=== PATIENT | male | born 1990 | race Caucasian/White ===

== ENCOUNTER → 2019-01-29 17:20 | Outpatient (CLI) | payer OTHER, SELFPAY ==
[2019-01-29 18:24] LABS: Basophils % 0.3 % (0.1-2.0); Eosinophils # 0.1 K/mm3 (0.0-0.4); Eosinophils % 1.5 % (0.1-12.0); Hematocrit 42.8 % (42.0-52.0); Hemoglobin 14.3 g/dL (14.1-18.0); Lymphocytes # 2.5 K/mm3 (0.7-4.5); Lymphocytes % 25.5 % (10-50); Mean Corpuscular HGB Conc 33.5 g/dL (31.8-35.4); Mean Corpuscular Volume 89.5 fl (80-94); Mean Platelet Volume 7.5 fl (7.4-10.4); Monocytes # 0.6 K/mm3 (0.1-1.0); Monocytes % 6.5 % (1.7-9.3); Neutrophils # 6.3 K/mm3 (1.8-7.8); Neutrophils % 66.2 % (37.0-80.0); Platelet Count 305 K/mm3 (142-424); Red Blood Count 4.78 M/mm3 (4.60-6.20); Red Cell Distribution Width 13.5 % (11.5-17.5); White Blood Count 9.6 K/mm3 (4.8-10.8)
[2019-01-29 18:53] LABS: Alanine Aminotransferase 156 U/L (12-78); Albumin Level 3.9 gm/dL (3.4-5.0); Albumin/Globulin Ratio 1.1 (1.1-1.8); Alkaline Phosphatase 97 U/L (46-116); Anion Gap 14.9 mEq/L (5-15); Aspartate Amino Transferase 50 U/L (15-37); Bilirubin,Total 0.3 mg/dL (0.2-1.0); Blood Urea Nitrogen 13 mg/dL (7-18); Calcium 9.2 mg/dL (8.5-10.1); Carbon Dioxide 26 mmol/L (21.0-32.0); Chloride 104 mmol/L (98-107); Chol/HDL Ratio 7.3 (1-3.5); Cholesterol 205 mg/dL (140-200); Estimated Glomerular Filt Rate 90 ml/min (>60); GFR (African American) 109 ML/MIN (>60); Globulin 3.7 gm/dl (1.3-3.2); Glucose 100 mg/dL (74-106); HDL Cholesterol 28 mg/dL (27-67); LDL Cholesterol 141 mg/dL (0-130); Potassium 3.9 mmoL/L (3.5-5.1); Sodium 141 mmol/L (136-145); T4 (Thyroxine) 7.6 ug/dl (4.7-13.3); Thyroid Stimulating Hormone 3.08 uIU/ml (0.358-3.740); Total Protein,Serum 7.6 gm/dL (6.4-8.2); Triglycerides 182 mg/dL (30-200); VLDL Cholesterol 36 mg/dL (0-40)
== END ==
PROVIDERS: Visit Provider Nurse Practitioner Family
DX: E03.9 Hypothyroidism, unspecified (principal); I10 Essential (primary) hypertension; E55.9 Vitamin D deficiency, unspecified
CPT/HCPCS: 80053; 80061; 82652; 84436; 84443; 85025

== ENCOUNTER 2020-01-11 14:29 | Emergency (ER) | payer OTHER, SELFPAY ==
[2020-01-11 14:36] VITALS: BP 100/63; PULSE 95; RESP 16; O2SAT 98; BMI 34.8
[2020-01-11 14:43] VITALS: BP 100/63; PULSE 95; RESP 16; TEMP 36.7; O2SAT 98; BMI 37.8
--- NOTE | 2020-01-11 14:44 | XR_ITS ---
PROCEDURE: XR ELBOW RT MIN 3V CLINICAL INDICATION: Right elbow pain. No known injury. COMPARISON: No exams were available for comparison FINDINGS: No fracture or dislocation. No lytic or blastic change. There is normal mineralization. The joint spaces are well-preserved. No significant degenerative/arthritic changes. Small subchondral subtle chronic nonspecific lytic changes are seen in the capitellum. Likely a bone island is present in the radial head. Other findings:Anterior and posterior fat pads of the elbow are nondisplaced. IMPRESSION: 1. No acute findings. 2. Small nonspecific chronic appearing minimally lytic changes are seen in the capitellum. Dictated by: Kareem James 01/11/2020 15:12 Electronically signed by Kareem James in [place] 01/11/2020 15:12
--- NOTE | 2020-01-11 14:55 | HMH.EDUTC ---
[facility] [place] Dis[place] Clinical Impression: Lateral epicondylitis (tennis elbow) Qualifiers: Laterality: right Qualified Code(s): M77.11 - Lateral epicondylitis, right elbow Disposition: Home, Self-Care Condition on Discharge: Good Additional Instructions: ice 20 mins remove may repeat every hour for comfort steroids as directed motrin as needed for pain and inflammation if symptoms worsen or no improvement return or be seen in ed Prescriptions: predniSONE [Prednisone 20mg Tab] 20 mg PO BID #10 tab Prescription Printed Referrals: Nikhil Genao MD [Primary Care Provider] - Azucena Lopez MD [Physician] - Time of Disposition: 15:07 Medical Decision Making - Eric Inquiry Pt receiving controlled substance: No Vital Signs: 01/11/20 14:36 01/11/20 14:43 Temperature 98.1 F Temperature Source Oral Pulse Rate [Left Radial] 95 H 95 H Respiratory Rate 16 16 Blood Pressure [Right Arm] 100/63 L 100/63 L Blood Pressure Mean [Right Arm] 75 75 Blood Pressure Source [Right Arm] Automatic Cuff Blood Pressure Position [Right Arm] Sitting Sitting 02 Sat by Pulse Oximetry 98 98 Oxygen Delivery Method Room Air Room Air Orders (Tests/Meds): ORDERS Category Date Time Status Elbow XR right minimum 3 views [XR elbow RT min 3V] Exams 01/11/20 14:44 Taken Stat [facility] [place] HPI - General Chief complaint: Extremity Injury, Upper Stated complaint: right arm pain Time Seen by Provider: 01/11/20 14:56 Mode of Arrival: Ambulatory Source of Information: Patient Description of Symptoms (Recalled from Triage Doc. by RN): to ed per pvt car with c/o rt elbow pain x several days. +swelling pain with movement. pt denies any injury HEENT Symptoms (Recalled from RN notes): No Resp Symptoms (Recalled from RN notes): No Skin Symptoms (Recalled from RN notes): No MS Symptoms (Recalled from RN notes): Yes Functional Status (Recalled from RN notes): none - History of Present Illness Provider Complaint: 29 yr old male presents rt elbow pain. pt states no injury. Pt states he was working friday and swinging a hammer and noticed his elbow was pain. Pt states today he woke up and was unable to bend his arm. - Related Data Previous Rx's Medication Instructions Recorded predniSONE [Prednisone 20mg 20 mg PO BID #10 tab 07/28/20 Tab] Allergies Allergy/AdvReac Type Severity Reaction Status Date / Time penicillin G [PENICILLIN G] Allergy Mild Verified 01/11/20 14:39 - Worker's Comp Is this a Worker's Comp case?: No [facility] History - Hepatitis A Screen Drug use history?: No High risk sexual behaviors?: No History of sexually transmitted infection?: No Currently employed?: No Childcare worker?: No Do you have indoor plumbing?: Yes Do you have electricity?: Yes Attestation statement:: This patient has been screened for Hepatitis A risk factors. I have reviewed the patient's past medical history: Yes Medical History: Reports:: Hypertension Denies:: Cancer, Diabetes Mellitus Type 1, Diabetes Mellitus Type 2, Internal Pacemaker, MRSA Other Medical History: Reports: Hypothyroidism Other Surgeries: Yes: Hernia Repair. No: Pacemaker Amputation: No Fractures: No - Social History Smoking Status: Current every day smoker Tobacco Type: smokeless tobacco # Packs/Day (cigarettes): 1 Alcohol Intake: never Alcohol Intake Frequency:: holidays/special occasions only Occupational Status: employed Housing: house Household Members: family Family Hx:: Non-contributory ROS Obtained: Yes Systems reviewed as appropriate & no additional complaints - Constitutional Constitutional: Reports system reviewed and no additional complaints, except as docu, Denies chills, Denies fever(s) - Eyes Eyes: Reports system reviewed and no additional complaints, except as docu, Denies loss of vision - ENT Ears, Nose, Mouth, and Throat: Reports system reviewed and no additional complaints, except as docu, Denies sore throat - C
[2020-01-11 15:30] VITALS: BP 100/63; PULSE 95; RESP 16; TEMP 36.7
== END 2020-01-11 15:30 | disposition home or self-care (01) ==
LOC: ER 14:38 → UTC 14:38
PROVIDERS: Emergency Provider Emergency Medicine; PCP Emergency Medicine
DX: M77.11 Lateral epicondylitis, right elbow (principal); I10 Essential (primary) hypertension; Z88.0 Allergy status to penicillin
CPT/HCPCS: 73080; 99201

== ENCOUNTER 2020-08-10 17:24 | Emergency (ER) | payer OTHER, SELFPAY ==
[2020-08-10 17:40] VITALS: BP 145/91; PULSE 84; RESP 17; TEMP 36.6; O2SAT 98; BMI 33.5
--- NOTE | 2020-08-10 17:55 | HMH.EDUTC ---
[facility] [place] Impression: Cough, Encounter for laboratory testing for COVID-19 virus Disposition: Home, Self-Care Condition on Discharge: Good Instructions: Cough, DI for COVID-19 (Suspected or Confirmed ), Coronavirus Disease 2019, Preventing the Spread of Coronavirus Discharge Instructions Additional Instructions: *Monitor Temp, Over the counter Motrin or Tylenol as directed/as needed Tylenol every 4 hours and Motrin every 6 hours (as long as your family doctor has told you that you can take it) for fever or pain. and straight to ER if unable to lower temp less than 101.0 after medication given *Warm fluids like tea with honey may help to soothe the throat *Sleep elevated *Humidifier/Vaporizer Bromfed may cause drowsiness. Know how it effects you (your child) before driving, caring for small child, or sending your child to school. Not other antihistamines/allergy medications while taking bromfed Follow up IMMEDIATELY for new or worsening symptoms or no Noticeable improvement over the next 48-72 hours. 911 for difficulty breathing or swallowing You were tested for today for COVID19 your test result should be back in the next 24-48 hours, you may call to the [facility] to see if your test results are back in the next 48 hours [phone] [facility] hours are 9am-9pm You was given a handout with instructions for Self Quarantine and Self isolation for while you wait on test results and what to do if they are positive If you are positive the Health Dept will be contacting you also Prescriptions: Brompheniramine/Pseudoephed/Dm [Bromfed Dm Cough Syrup] 5 - 10 ml PO Q46H PRN #200 ml PRN Reason: Cough [facility]: [facility] Referrals: Nikhil Genao MD [Primary Care Provider] - As needed Forms: Work/School Release Time of Disposition: 18:00 Medical Decision Making - Eric Inquiry Pt receiving controlled substance: No Eric was queried for this patient: No Vital Signs: 08/10/20 17:40 Temperature 97.8 F Temperature Source Oral Pulse Rate [Right Brachial] 84 Respiratory Rate 17 Blood Pressure [Right Arm] 145/91 H Blood Pressure Mean [Right Arm] 109 Blood Pressure Source [Right Arm] Automatic Cuff Blood Pressure Position [Right Arm] Sitting 02 Sat by Pulse Oximetry 98 Oxygen Delivery Method Room Air Orders (Tests/Meds): ORDERS Category Date Time Status Covid-19 Nasal PCR ([facility]) Routine Lab 08/10/20 17:38 [place] [facility] [place] - General Stated complaint: covid test Time Seen by Provider: 08/10/20 17:55 Mode of Arrival: Ambulatory Source of Information: Patient Limitations: No Limitations Description of Symptoms (Recalled from Triage Doc. by RN): COVID TEST D/T EXPOSURE. C/O COUGH AND FEVER SINCE FRIDAY HEENT Symptoms (Recalled from RN notes): No Resp Symptoms (Recalled from RN notes): No Skin Symptoms (Recalled from RN notes): No MS Symptoms (Recalled from RN notes): No Functional Status (Recalled from RN notes): WNL - History of Present Illness Provider Complaint: Patient states that he has had a nagging cough since Friday and had a fever for a couple of days that has since went away States that he has been quarantining at home and wanted to come in and get tested for COVID after this evening he noticed his taste was off - Related Data Previous Rx's Medication Instructions Recorded predniSONE [Prednisone 20mg 20 mg PO BID #10 tab 01/11/20 Tab] predniSONE [Prednisone 20mg 20 mg PO BID #10 tab 01/11/20 Tab] Brompheniramine/Pseudoephed/Dm 5 - 10 ml PO Q46H PRN #200 ml 08/10/20 [Bromfed Dm Cough Syrup] Allergies Allergy/AdvReac Type Severity Reaction Status Date / Time penicillin G [PENICILLIN G] Allergy Mild Verified 01/11/20 14:39 - Worker's Comp Is this a Worker's Comp case?: No [facility] History - Hepatitis A Screen Drug use history?: No High risk sexual behaviors?: No History of sexually transmitted infection?: No Shira
[2020-08-10 18:05] VITALS: BP 145/91; PULSE 84; RESP 17; TEMP 36.6; O2SAT 98
--- NOTE | 2020-08-11 10:17 | PC.NURSE ---
PT NOTIFIED OF COVID TEST RESULTS
== END 2020-08-10 18:11 | disposition home or self-care (01) ==
PROVIDERS: Emergency Provider Nurse Practitioner; PCP Emergency Medicine
DX: U07.1 COVID-19 (principal); I10 Essential (primary) hypertension; E03.9 Hypothyroidism, unspecified; Z88.0 Allergy status to penicillin; Z79.899 Other long term (current) drug therapy
CPT/HCPCS: 99202; G0463; U0003

== ENCOUNTER → 2023-04-11 23:28 | Outpatient (CLI) | payer OTHER, SELFPAY ==
[2023-04-11 18:36] LABS: Basophils # 0.1 K/mm3 (0-0.2); Basophils % 0.7 % (0.1-2.0); Eosinophils # 0.1 K/mm3 (0.0-0.4); Eosinophils % 1.8 % (0.1-12.0); Hematocrit 43.3 % (42.0-52.0); Hemoglobin 15.1 g/dL (14.1-18.0); Lymphocytes # 2.2 K/mm3 (0.7-4.5); Lymphocytes % 29.5 % (10-50); Mean Corpuscular HGB Conc 34.9 g/dL (31.8-35.4); Mean Corpuscular Hemoglobin 31.2 pg (27.0-31.2); Mean Corpuscular Volume 89.4 fl (80-94); Monocytes # 0.3 K/mm3 (0.1-1.0); Monocytes % 4.1 % (1.7-9.3); Neutrophils # 4.8 K/mm3 (1.8-7.8); Neutrophils % 63.9 % (37.0-80.0); Platelet Count 270 K/mm3 (142-424); Red Blood Count 4.85 M/mm3 (4.60-6.20); Red Cell Distribution Width 13.2 % (11.5-17.5); White Blood Count 7.6 K/mm3 (4.8-10.8)
[2023-04-11 18:46] LABS: Alanine Aminotransferase 172 U/L (12-78); Albumin Level 4.4 g/dl (3.5-5.0); Albumin/Globulin Ratio 1.4 (1.1-1.8); Alkaline Phosphatase 160 U/L (38-126); Aspartate Amino Transferase 84 U/L (17-59); Bilirubin,Total 0.6 mg/dl (0.2-1.3); Blood Urea Nitrogen 14 mg/dl (9-20); Calcium 9.3 mg/dl (8.4-10.2); Chloride 99 mmol/L (98-107); Chol/HDL Ratio 11.8 (1-3.5); Cholesterol 235 mg/dl (140-200); Estimated Glomerular Filt Rate 132 ml/min (>60); GFR (African American) 160 ML/MIN (>60); Globulin 3.2 g/dL (1.3-3.2); Glucose 373 mg/dl (74-100); HDL Cholesterol 20 mg/dl (40-60); Sodium 136 mmol/L (136-145); Total Protein,Serum 7.6 g/dl (6.3-8.2)
[2023-04-11 18:54] LABS: Triglycerides 592 mg/dl (30-150)
[2023-04-11 18:57] LABS: Direct LDL Cholesterol 94.54 mg/dL (100-129); Hemoglobin A1C 11.2 % (4.0-6.0)
[2023-04-11 19:01] LABS: 25-OH Vitamin D, Total 24.6 ng/mL (30-100); Free T4 (Free Thyroxine) 1.74 ng/dl (0.78-2.19)
[2023-04-11 19:29] LABS: Carbon Dioxide 23 mmol/L (22.0-30.0)
== END ==
LOC: LAB.DROPOF 23:28
PROVIDERS: PCP Student in an Organized Health Care Education/Training Program; Visit Provider Student in an Organized Health Care Education/Training Program
DX: R73.9 Hyperglycemia, unspecified (principal); E55.9 Vitamin D deficiency, unspecified; Z68.32 Body mass index [BMI] 32.0-32.9, adult
CPT/HCPCS: 80053; 80061; 82306; 83036; 84439; 84443; 85025

== ENCOUNTER → 2023-05-15 08:49 | Outpatient (CLI) | payer OTHER, SELFPAY ==
[2023-05-15 19:45] LABS: Basophils % 0.4 % (0.1-2.0); Eosinophils # 0.1 K/mm3 (0.0-0.4); Eosinophils % 1.4 % (0.1-12.0); Hematocrit 45.9 % (42.0-52.0); Hemoglobin 15.3 g/dL (14.1-18.0); Lymphocytes % 22.9 % (10-50); Mean Corpuscular HGB Conc 33.3 g/dL (31.8-35.4); Mean Corpuscular Hemoglobin 31.2 pg (27.0-31.2); Mean Corpuscular Volume 93.7 fl (80-94); Mean Platelet Volume 9.3 fl (7.4-10.4); Monocytes # 0.6 K/mm3 (0.1-1.0); Monocytes % 6.8 % (1.7-9.3); Neutrophils # 5.9 K/mm3 (1.8-7.8); Neutrophils % 68.5 % (37.0-80.0); Platelet Count 299 K/mm3 (142-424); Red Cell Distribution Width 13.9 % (11.5-17.5); White Blood Count 8.6 K/mm3 (4.8-10.8)
[2023-05-15 20:01] LABS: Sodium 137 mmol/L (136-145)
[2023-05-15 20:02] LABS: Alanine Aminotransferase 76 U/L (12-78); Albumin Level 4.4 g/dl (3.5-5.0); Albumin/Globulin Ratio 1.6 (1.1-1.8); Alkaline Phosphatase 96 U/L (38-126); Anion Gap 17.2 mEq/L (5-15); Aspartate Amino Transferase 42 U/L (17-59); Bilirubin,Total 0.4 mg/dl (0.2-1.3); Blood Urea Nitrogen 14 mg/dl (9-20); Calcium 8.8 mg/dl (8.4-10.2); Carbon Dioxide 22 mmol/L (22.0-30.0); Chloride 102 mmol/L (98-107); Chol/HDL Ratio 5.5 (1-3.5); Cholesterol 154 mg/dl (140-200); Estimated Glomerular Filt Rate 114 ml/min (>60); GFR (African American) 137 ML/MIN (>60); Globulin 2.8 g/dL (1.3-3.2); Glucose 133 mg/dl (74-100); HDL Cholesterol 28 mg/dl (40-60); Potassium 4.2 mmoL/L (3.5-5.1); Total Protein,Serum 7.2 g/dl (6.3-8.2); Triglycerides 129 mg/dl (30-150); VLDL Cholesterol 26 mg/dL (0-40)
[2023-05-15 20:13] LABS: Direct LDL Cholesterol 104.93 mg/dL (100-129)
[2023-05-15 20:33] LABS: Thyroid Stimulating Hormone 3.94 uIU/mL (0.465-4.68)
== END ==
LOC: LAB.DROPOF 05-16 08:49
PROVIDERS: PCP Student in an Organized Health Care Education/Training Program; Visit Provider Student in an Organized Health Care Education/Training Program
DX: E03.9 Hypothyroidism, unspecified (principal); I10 Essential (primary) hypertension; E66.9 Obesity, unspecified; Z68.32 Body mass index [BMI] 32.0-32.9, adult; F17.220 Nicotine dependence, chewing tobacco, uncomplicated
CPT/HCPCS: 80053; 80061; 83036; 84443; 85025

== ENCOUNTER 2023-07-18 13:42 | Outpatient (CLI) | payer OTHER, SELFPAY ==
[2023-07-18 14:51] LABS: Creatinine,Urine Random 181 mg/dL (Not Estab.); Microalbumin < 6.000 mg/L (0-16.7)
[2023-07-18 19:34] LABS: Basophils # 0.1 K/mm3 (0-0.2); Basophils % 0.6 % (0.1-2.0); Eosinophils # 0.2 K/mm3 (0.0-0.4); Eosinophils % 2.1 % (0.1-12.0); Hematocrit 44.8 % (42.0-52.0); Hemoglobin 15.3 g/dL (14.1-18.0); Lymphocytes # 2.1 K/mm3 (0.7-4.5); Lymphocytes % 25.7 % (10-50); Mean Corpuscular HGB Conc 34.1 g/dL (31.8-35.4); Mean Corpuscular Hemoglobin 31.2 pg (27.0-31.2); Mean Corpuscular Volume 91.3 fl (80-94); Mean Platelet Volume 8.8 fl (7.4-10.4); Monocytes # 0.5 K/mm3 (0.1-1.0); Monocytes % 6.2 % (1.7-9.3); Neutrophils # 5.5 K/mm3 (1.8-7.8); Neutrophils % 65.4 % (37.0-80.0); Platelet Count 280 K/mm3 (142-424); Red Blood Count 4.91 M/mm3 (4.60-6.20); Red Cell Distribution Width 13.4 % (11.5-17.5); White Blood Count 8.3 K/mm3 (4.8-10.8)
[2023-07-18 19:47] LABS: Alanine Aminotransferase 92 U/L (12-78); Albumin Level 4.3 g/dl (3.5-5.0); Albumin/Globulin Ratio 1.5 (1.1-1.8); Alkaline Phosphatase 91 U/L (38-126); Anion Gap 13.2 mEq/L (5-15); Aspartate Amino Transferase 40 U/L (17-59); Bilirubin,Total 0.5 mg/dl (0.2-1.3); Blood Urea Nitrogen 12 mg/dl (9-20); Calcium 9.4 mg/dl (8.4-10.2); Carbon Dioxide 26 mmol/L (22.0-30.0); Chloride 105 mmol/L (98-107); Chol/HDL Ratio 7.3 (1-3.5); Cholesterol 203 mg/dl (140-200); Estimated Glomerular Filt Rate 114 ml/min (>60); GFR (African American) 137 ML/MIN (>60); Globulin 2.9 g/dL (1.3-3.2); Glucose 120 mg/dl (74-100); HDL Cholesterol 28 mg/dl (40-60); Potassium 4.2 mmoL/L (3.5-5.1); Sodium 140 mmol/L (136-145); Total Protein,Serum 7.2 g/dl (6.3-8.2); Triglycerides 100 mg/dl (30-150); VLDL Cholesterol 20 mg/dL (0-40)
[2023-07-18 19:58] LABS: Direct LDL Cholesterol 145.49 mg/dL (100-129); Hemoglobin A1C 6.6 % (4.0-6.0)
[2023-07-18 20:04] LABS: 25-OH Vitamin D, Total 18.9 ng/mL (30-100)
[2023-07-18 20:18] LABS: Thyroid Stimulating Hormone 2.25 uIU/mL (0.465-4.68)
== END 2023-07-18 23:59 ==
LOC: LAB.DROPOF 13:43
PROVIDERS: PCP Student in an Organized Health Care Education/Training Program; Visit Provider Student in an Organized Health Care Education/Training Program
DX: E11.9 Type 2 diabetes mellitus without complications (principal); E55.9 Vitamin D deficiency, unspecified; Z68.32 Body mass index [BMI] 32.0-32.9, adult; Z79.84 Long term (current) use of oral hypoglycemic drugs
CPT/HCPCS: 80053; 80061; 82043; 82306; 82570; 83036; 84443; 85025

== ENCOUNTER 2023-12-29 11:02 | Outpatient (CLI) | payer BC, SELFPAY ==
[2023-12-29 19:17] LABS: Chloride 103 mmol/L (98-107); Sodium 135 mmol/L (136-145)
[2023-12-29 19:18] LABS: Potassium 4.5 mmoL/L (3.5-5.1)
[2023-12-29 19:20] LABS: Alanine Aminotransferase 97 U/L (12-78); Albumin Level 4.2 g/dl (3.5-5.0); Albumin/Globulin Ratio 1.4 (1.1-1.8); Alkaline Phosphatase 142 U/L (38-126); Anion Gap 16.5 mEq/L (5-15); Aspartate Amino Transferase 34 U/L (17-59); Bilirubin,Total 0.5 mg/dl (0.2-1.3); Blood Urea Nitrogen 17 mg/dl (9-20); Carbon Dioxide 20 mmol/L (22.0-30.0); Cholesterol 235 mg/dl (140-200); Estimated Glomerular Filt Rate 132 ml/min (>60); GFR (African American) 159 ML/MIN (>60); Total Protein,Serum 7.2 g/dl (6.3-8.2)
[2023-12-29 19:21] LABS: Calcium 10.1 mg/dl (8.4-10.2); Chol/HDL Ratio 9.4 (1-3.5); HDL Cholesterol 25 mg/dl (40-60)
[2023-12-29 19:32] LABS: Direct LDL Cholesterol 128.52 mg/dL (100-129)
[2023-12-29 19:35] LABS: 25-OH Vitamin D, Total 30.5 ng/mL (30-100)
[2023-12-29 19:36] LABS: Glucose 425 mg/dl (74-100); Triglycerides 473 mg/dl (30-150)
[2023-12-29 19:44] LABS: Basophils # 0.1 K/mm3 (0-0.2); Basophils % 0.5 % (0.1-2.0); Eosinophils # 0.1 K/mm3 (0.0-0.4); Hematocrit 45.3 % (42.0-52.0); Hemoglobin 15.2 g/dL (14.1-18.0); Lymphocytes # 2.5 K/mm3 (0.7-4.5); Lymphocytes % 29.1 % (10-50); Mean Corpuscular HGB Conc 33.5 g/dL (31.8-35.4); Mean Corpuscular Volume 92.5 fl (80-94); Mean Platelet Volume 9.9 fl (7.4-10.4); Monocytes # 0.5 K/mm3 (0.1-1.0); Monocytes % 5.6 % (1.7-9.3); Neutrophils # 5.5 K/mm3 (1.8-7.8); Neutrophils % 63.7 % (37.0-80.0); Platelet Count 325 K/mm3 (142-424); Red Blood Count 4.89 M/mm3 (4.60-6.20); Red Cell Distribution Width 13.9 % (11.5-17.5); White Blood Count 8.6 K/mm3 (4.8-10.8)
[2023-12-29 19:51] LABS: Thyroid Stimulating Hormone 6.23 uIU/mL (0.465-4.68)
[2023-12-29 21:14] LABS: Hemoglobin A1C 12.1 % (4.0-6.0)
[2023-12-30 15:19] LABS: HIV (1&2) Antibody Rapid NON REACTIVE
[2023-12-31 08:34] LABS: HCV Ab Non Reactive (Non Reactive)
== END 2023-12-29 23:59 | disposition home or self-care (01) ==
LOC: LAB.DROPOF 12-30 11:03
PROVIDERS: PCP Student in an Organized Health Care Education/Training Program; Visit Provider Student in an Organized Health Care Education/Training Program
DX: Z11.59 Encounter for screening for other viral diseases (principal); Z11.4 Encounter for screening for human immunodeficiency virus [HIV]; E11.9 Type 2 diabetes mellitus without complications; Z79.84 Long term (current) use of oral hypoglycemic drugs; E55.9 Vitamin D deficiency, unspecified
CPT/HCPCS: 80050; 80053; 80061; 82306; 83036; 84443; 85025

== ENCOUNTER 2024-01-30 11:11 | Outpatient (CLI) | payer BC, SELFPAY ==
[2024-01-30 18:30] LABS: Alanine Aminotransferase 35 U/L (12-78); Albumin Level 3.7 g/dl (3.5-5.0); Albumin/Globulin Ratio 1.3 (1.1-1.8); Alkaline Phosphatase 109 U/L (38-126); Anion Gap 13.1 mEq/L (5-15); Aspartate Amino Transferase 24 U/L (17-59); Bilirubin,Total 0.6 mg/dl (0.2-1.3); Blood Urea Nitrogen 12 mg/dl (9-20); Calcium 8.8 mg/dl (8.4-10.2); Carbon Dioxide 24 mmol/L (22.0-30.0); Chloride 103 mmol/L (98-107); Estimated Glomerular Filt Rate 157 ml/min (>60); GFR (African American) 190 ML/MIN (>60); Globulin 2.8 g/dL (1.3-3.2); Glucose 300 mg/dl (74-100); Potassium 4.1 mmoL/L (3.5-5.1); Sodium 136 mmol/L (136-145); Total Protein,Serum 6.5 g/dl (6.3-8.2)
[2024-01-30 18:54] LABS: Free Thyroxine Index 2.8 ug/dL (5.93-13.13); T4 (Thyroxine) 8.1 ug/dl (5.53-11.0); Triiodothryronine (T3) Uptake 35 % (23.5-40.5)
[2024-01-30 19:01] LABS: Hemoglobin A1C > 14.0 % (4.0-6.0)
[2024-01-30 19:07] LABS: Thyroid Stimulating Hormone 3.37 uIU/mL (0.465-4.68)
== END 2024-01-30 23:59 | disposition home or self-care (01) ==
LOC: LAB.DROPOF 04-24 10:35
PROVIDERS: PCP Student in an Organized Health Care Education/Training Program; Visit Provider Student in an Organized Health Care Education/Training Program
DX: E11.9 Type 2 diabetes mellitus without complications (principal)
CPT/HCPCS: 80053; 83036; 84436; 84443; 84479

== ENCOUNTER 2024-04-30 10:41 | Outpatient (CLI) | payer BC, SELFPAY ==
[2024-04-30 18:48] LABS: Basophils # 0.1 K/mm3 (0-0.2); Basophils % 0.7 % (0.1-2.0); Eosinophils # 0.1 K/mm3 (0.0-0.4); Eosinophils % 1.2 % (0.1-12.0); Hematocrit 43.4 % (42.0-52.0); Hemoglobin 15.2 g/dL (14.1-18.0); Lymphocytes # 2.1 K/mm3 (0.7-4.5); Lymphocytes % 29.3 % (10-50); Mean Corpuscular HGB Conc 35.1 g/dL (31.8-35.4); Mean Corpuscular Hemoglobin 30.7 pg (27.0-31.2); Mean Corpuscular Volume 87.4 fl (80-94); Mean Platelet Volume 8.7 fl (7.4-10.4); Monocytes # 0.5 K/mm3 (0.1-1.0); Monocytes % 6.5 % (1.7-9.3); Neutrophils # 4.4 K/mm3 (1.8-7.8); Neutrophils % 62.3 % (37.0-80.0); Platelet Count 242 K/mm3 (142-424); Red Blood Count 4.96 M/mm3 (4.60-6.20); Red Cell Distribution Width 13.7 % (11.5-17.5)
[2024-04-30 18:56] LABS: Alanine Aminotransferase 50 U/L (12-78); Albumin Level 4.4 g/dl (3.5-5.0); Albumin/Globulin Ratio 1.6 (1.1-1.8); Alkaline Phosphatase 90 U/L (38-126); Anion Gap 16.3 mEq/L (5-15); Aspartate Amino Transferase 26 U/L (17-59); Bilirubin,Total 0.7 mg/dl (0.2-1.3); Blood Urea Nitrogen 13 mg/dl (9-20); Calcium 9.2 mg/dl (8.4-10.2); Carbon Dioxide 24 mmol/L (22.0-30.0); Chloride 101 mmol/L (98-107); Chol/HDL Ratio 5.4 (1-3.5); Cholesterol 207 mg/dl (140-200); Estimated Glomerular Filt Rate 157 ml/min (>60); GFR (African American) 190 ML/MIN (>60); Globulin 2.7 g/dL (1.3-3.2); Glucose 265 mg/dl (74-100); HDL Cholesterol 38 mg/dl (40-60); Potassium 4.3 mmoL/L (3.5-5.1); Sodium 137 mmol/L (136-145); Total Protein,Serum 7.1 g/dl (6.3-8.2); Triglycerides 176 mg/dl (30-150); VLDL Cholesterol 35 mg/dL (0-40)
[2024-04-30 19:07] LABS: Direct LDL Cholesterol 146.85 mg/dL (100-129)
[2024-04-30 19:12] LABS: Hemoglobin A1C 10.7 % (4.0-6.0)
[2024-04-30 19:13] LABS: 25-OH Vitamin D, Total 25.1 ng/mL (30-100); Free T4 (Free Thyroxine) 0.93 ng/dl (0.78-2.19)
[2024-04-30 19:28] LABS: Thyroid Stimulating Hormone 5.55 uIU/mL (0.465-4.68)
== END 2024-04-30 23:59 | disposition home or self-care (01) ==
LOC: LAB.DROPOF 05-03 10:41
PROVIDERS: PCP Student in an Organized Health Care Education/Training Program; Visit Provider Student in an Organized Health Care Education/Training Program
DX: E11.9 Type 2 diabetes mellitus without complications (principal); E55.9 Vitamin D deficiency, unspecified; R79.89 Other specified abnormal findings of blood chemistry; Z79.84 Long term (current) use of oral hypoglycemic drugs
CPT/HCPCS: 80050; 80053; 80061; 82306; 83036; 84439; 84443; 85025

== ENCOUNTER 2025-04-27 16:42 | Outpatient (CLI) | payer BC, SELFPAY ==
[2025-04-27 21:15] LABS: Hematocrit 45.0 % (42.0-52.0); Hemoglobin 15.2 g/dL (14.1-18.0); Immature Granulocytes % 0.3 %; Mean Corpuscular HGB Conc 33.8 g/dL (31.8-35.4); Mean Corpuscular Hemoglobin 29.7 pg (27.0-31.2); Mean Corpuscular Volume 88.1 fl (80-94); Nucleated Red Blood Cells % 0 %; Platelet Count 273 K/mm3 (142-424); Red Blood Count 5.11 M/mm3 (4.60-6.20); Red Cell Distribution Width-SD 37.9 fL; White Blood Count 6.9 K/mm3 (4.8-10.8)
[2025-04-27 22:10] LABS: Alanine Aminotransferase 27 U/L (12-78); Albumin Level 4.6 g/dl (3.5-5.0); Albumin/Globulin Ratio 1.8 (1.1-1.8); Alkaline Phosphatase 107 U/L (38-126); Anion Gap 17.8 mEq/L (5-15); Aspartate Amino Transferase 18 U/L (17-59); Bilirubin,Total 0.5 mg/dl (0.2-1.3); Blood Urea Nitrogen 14 mg/dl (9-20); Calcium 10.1 mg/dl (8.4-10.2); Carbon Dioxide 21 mmol/L (22.0-30.0); Chloride 91 mmol/L (98-107); Creatinine,Serum 0.60 mg/dl (0.66-1.25); Estimated Glomerular Filt Rate 156 ml/min (>60); GFR (African American) 189 ML/MIN (>60); Globulin 2.5 g/dL (1.3-3.2); Potassium 4.8 mmoL/L (3.5-5.1); Sodium 125 mmol/L (136-145); Total Protein,Serum 7.1 g/dl (6.3-8.2)
[2025-04-27 22:29] LABS: Glucose 750 mg/dl (74-100)
[2025-04-27 22:34] LABS: Free T4 (Free Thyroxine) 0.84 ng/dl (0.78-2.19)
[2025-04-27 22:38] LABS: Thyroid Stimulating Hormone 1.99 uIU/mL (0.465-4.68)
[2025-04-27 23:07] LABS: Hepatitis C Ab Qual. W/ RFX NEGATIVE (Negative)
[2025-04-27 23:14] LABS: Hemoglobin A1C > 14.0 % (4.0-6.0)
== END 2025-04-27 23:59 ==
LOC: LAB.DROPOF 04-28 10:37
PROVIDERS: PCP Student in an Organized Health Care Education/Training Program; Visit Provider Student in an Organized Health Care Education/Training Program
DX: E03.9 Hypothyroidism, unspecified (principal); E11.9 Type 2 diabetes mellitus without complications; I10 Essential (primary) hypertension; Z11.59 Encounter for screening for other viral diseases
CPT/HCPCS: 80053; 82043; 82570; 83036; 84439; 84443; 85025; 86803; 87389